=== PATIENT | male | born 1985 | race Caucasian/White ===

== ENCOUNTER 2016-05-17 10:23 | Emergency (ER) | payer OTHER ==
[~2016-05-17] VITALS: Ht 167.6 cm; Wt 81.6 kg
[2016-05-17 10:29] VITALS: BP 133/71
[2016-05-17] MEDS ORDERED: NACL 0.9% 1,000 ML IV ONE (10:40)
--- NOTE | 2016-05-17 10:47 | NUR ---
30/M presents to ED for evaluation of left eye pain and swelling since this morning. Eye is swollen, redness noted to sclera, denies any draiange, no drainage noted. Pt denies any injury to eye. 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 Patient also reports having hx of DM but has been off medication since September. Pt states he was taking two kinds of insulin and Metformin 2000mg/day. Pt has not seen his primary doctor and has not been compliant with checking blood sugars. Pt denies N/V/D. Pt states "I feel fine." Pt also c/o right knee pain. Pt had a knee replacement in September 2015. Pt is AOX4, ambulatory with steady gait. VSS. Girlfriend at bedside. Addendum: 05/17/16 at 1158 by [facility] Pt c/o right knee pain. No prior surgery was done. No knee replacement done. Patient had an old soccer injury. Prior surgery: appendectomy September 2015
--- NOTE | 2016-05-17 11:00 | NUR ---
PATIENT PRESENTS TO ED WITH LEFT EYE PAIN WITH SWELLING X1 DAY. ALSO C/O RIGHT KNEE PAIN. DENIES N/V/D; SKIN IS PINK/WARM/DRY; AAOX4 WITH EVEN AND STEADY GAIT; LUNGS CLEAR BL; HR EVEN AND REGULAR; PT DENIES ANY FEVER, CP, SOB, OR COUGH AT THIS TIME; PATIENT STATES PAIN OF 7/10 AT THIS TIME; VSS; PATIENT POSITIONED FOR COMFORT; HOB ELEVATED; BEDRAILS UP X2; BED DOWN. ER MD MADE AWARE OF PT STATUS.
[2016-05-17] MEDS ORDERED: INSULIN HUMAN REGULAR 100 UNITS/ML 10 ML VIAL IVP ONE (11:30)
--- NOTE | 2016-05-17 12:06 | NUR ---
Pt report given to Jim PLASCENCIA. Transfer of care at this time.
[2016-05-17] MEDS ORDERED: FLUORESCEIN OPTH STRIP 1 MG ONE (12:11)
[2016-05-17] MEDS ORDERED: FLUORESCEIN OPTH STRIP 1 MG OP ONE (12:20)
[2016-05-17] MEDS ORDERED: KETOROLAC 30 MG/ML VIAL IVP ONE (12:25)
[2016-05-17 13:25] VITALS: BP 116/64
== END 2016-05-17 13:25 | disposition home or self-care (01) ==
LOC: MED 10:23
DX: B30.9 Viral conjunctivitis, unspecified (principal); M25.561 Pain in right knee; E11.65 Type 2 diabetes mellitus with hyperglycemia; Z90.89 Acquired absence of other organs
CPT/HCPCS: 36415; 80053; 81002; 82948; 85025; 96361; 96374; 96375; 99284; J1815; J1885; J7030

== ENCOUNTER 2016-06-04 18:07 | Emergency (ER) | payer OTHER ==
[~2016-06-04] VITALS: Ht 170.2 cm; Wt 74.4 kg
[2016-06-04 18:44] VITALS: BP 116/75
--- NOTE | 2016-06-04 19:55 | NUR ---
Patient ambulated to bed 03.
--- NOTE | 2016-06-04 20:14 | NUR ---
PATIENT PRESENTS TO ED WITH C/O RIGHT KNEE PAIN . PT DENIES N/V/D; SKIN IS PINK/WARM/DRY; AAOX4 WITH EVEN AND STEADY GAIT; LUNGS CLEAR BL; HR EVEN AND REGULAR; PT DENIES ANY FEVER, CP, SOB, OR COUGH AT THIS TIME; PATIENT STATES PAIN OF 7/10 AT THIS TIME; VSS; PATIENT POSITIONED FOR COMFORT; HOB ELEVATED; BEDRAILS UP X2; BED DOWN. ER MD MADE AWARE OF PT STATUS.
--- NOTE | 2016-06-04 20:58 | NUR ---
Dr. Ortiz evaluating patient at bedside.
[2016-06-04 21:18] VITALS: BP 123/79
--- NOTE | 2016-06-04 21:19 | NUR ---
Patient discharged with v/s stable. Written and verbal after care instructions given and explained. Patient alert, oriented and verbalized understanding of instructions. Ambulatory with steady gait. All questions addressed prior to discharge. ID band removed. Patient advised to follow up with PMD. Rx of LANTUS AND NORCO given. Patient educated on indication of medication including possible reaction and side effects. Opportunity to ask questions provided and answered.
== END 2016-06-04 21:19 | disposition home or self-care (01) ==
LOC: MED 18:07
DX: M25.561 Pain in right knee (principal); E11.9 Type 2 diabetes mellitus without complications; R60.9 Edema, unspecified; Z79.4 Long term (current) use of insulin
CPT/HCPCS: 82948; 99283